=== PATIENT | female | born 1965 | race Caucasian/White ===

== ENCOUNTER 2018-08-01 08:03 | Day surgery (SDC) | payer BC ==
[2018-07-29 08:41] VITALS: BMI 38.6
[~2018-08-01 08:03] MED LIST: LACTATED RINGERS 1,000 ML IV SCH; LIDOCAINE 1% 20 ML VIAL (10MG/ML) FOR IV START INTRADERMA PRN; MIDAZOLAM (PF) 2 MG/2 ML VIAL IV PRN; Pre Op ABX Message 1 EACH MISC MISCELLANE ONE
[2018-08-01 08:22] VITALS: TEMP 97.4
[2018-08-01] MEDS ORDERED: ONDANSETRON 4 MG/2 ML VIAL IVP ONE (08:28)
[2018-08-01] MEDS ORDERED: DEXAMETHASONE SOD PHOSPHATE 10 MG/ML 1 ML VIAL IV ONE (08:28)
[2018-08-01] MEDS ORDERED: PROPOFOL 10 MG/ML 20 ML VIAL IV ONE (08:38)
[2018-08-01] MEDS ORDERED: MIDAZOLAM 2 MG/2 ML VIAL ONE (08:38)
[2018-08-01] MEDS ORDERED: fentaNYL (PF) 50 MCG/ML 2 ML AMP ONE (08:38)
[2018-08-01] MEDS ORDERED: LIDOCAINE 2% INJ 20 MG/ML SQ ONE (08:49)
--- NOTE | 2018-08-01 09:03 | P.OP ---
Date of Procedure: 08/01/18 Procedure(s) Performed: PREOPERATIVE DIAGNOSES: 1. Right trigger thumb; 2. 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 Right trigger thumb 2. Retinacular cyst of thumb flexor sheath PROCEDURES PERFORMED: 1. Right trigger thumb open release, 2. Excision retinacular cyst flexor sheath ANESTHESIA: Local with IV sedation SWIMMING COACH OR INSTRUCTOR: . None COMPLICATIONS: None ESTIMATED BLOOD LOSS: 0 mL. DISPOSITION: To post-anesthesia care unit INDICATIONS: . Carlita is a 52 year old female with a history of right trigger thumb. This is been very painful and the thumb has developed a slight flexion contracture of the IP joint. She also has a small mass that may represent a retinacular ganglion cyst of the tendon sheath. I recommended open release with removal of the retinacular cyst if one is present. The patient has signed the consent form and wishes to proceed with surgery after full explanation of the risks and potential complications. I have explained these as being inclusive of, but not limited to: Bleeding, infection, scarring, discomfort, blood vessel and/or nerve damage, incomplete release, flexion contracture, stiffness, and other risks. PROCEDURE: After appropriate consent was obtained, the patient was taken to the operating room placed in the supine position. Anesthesia was initiated, and after confirmation of adequate anesthesia, the patient was carefully positioned. Care was taken to make sure that all pressure points were adequately padded. Prepping and draping were completed in the usual aseptic fashion using ChloraPrep. Timeout was called, confirming patient identity, side, procedure, and administration of antibiotics. No antibiotics were given as this was a simple hand case. The limb was exsanguinated with an Esmarch bandage and the tourniquet was inflated to 200 mmHg. Total tourniquet time for the case was approximately 12 minutes. The hand was positioned on a padded aluminum frame. Local infiltration of anesthetic was performed using 2% lidocaine along the area of the planned incision . An incision approximately 1.5 cm in length was created on the volar proximal crease of the thumb. The incision was taken down just through dermis, and then skin hooks were applied and blunt dissection was then carried down to the tendon sheath. Tendon sheath was exposed medially and laterally and retractors were applied to retract neurovascular structures. The proximal extent of the A1 shauna was noted and released under direct visualization using a number 15 blade. The release proceeded to the oblique ligament, which was then preserved. The sheath was extremely tight, sclerotic and thick, and a complex but small retinacular cyst was noted, approximately 2-3 mm in size, which was excised along with the release. There was no significant underlying tendon damage. The flexor tendon was then removed from its sheath using a Ragnell retractor and flexion and extension of the IP joint was noted to be full. Additionally, the patient was slightly awoken from sedation and asked to flex and extend the thumb which the patient was able to do fully. Area was thoroughly irrigated with normal saline closure was performed with 4-0 nylon suture and a sterile dressing was applied. Tourniquet was deflated and pressure was held over the incision for 3 minutes for additional hemostasis. Patient tolerated the procedure well and taken to recovery room in stable condition. Sponge and needle counts were correct.
[2018-08-01 09:13] VITALS: RESP 16
[2018-08-01 09:28] VITALS: PULSE 70
[2018-08-01 09:58] VITALS: BP 123/85
== END 2018-08-01 10:02 | disposition home or self-care (01) ==
LOC: OR 08:03
PROVIDERS: ATTEND Orthopaedic Surgery
DX: M65.311 Trigger thumb, right thumb (principal); M67.441 Ganglion, right hand; M67.843 Other specified disorders of tendon, right hand; I10 Essential (primary) hypertension; E03.9 Hypothyroidism, unspecified; F32.9 Major depressive disorder, single episode, unspecified; K21.9 Gastro-esophageal reflux disease without esophagitis; Z79.890 Hormone replacement therapy; Z79.899 Other long term (current) drug therapy; Z85.810 Personal history of malignant neoplasm of tongue; Z82.49 Family history of ischemic heart disease and other diseases of the circulatory system
CPT/HCPCS: 26160; 26055; J2001; J2250; J1100; J2405; J3010; J2704